=== PATIENT | female | born 1995 | race Caucasian/White ===

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

== ENCOUNTER 2017-07-01 11:49 | Emergency (ER) | payer OTHER ==
[2017-07-01 12:15] VITALS: BMI 26.3
[2017-07-01 12:16] VITALS: RESP 18
--- NOTE | 2017-07-01 13:03 | C.PDOC ---
History Of Present Illness 22 y/o female with history of Asthma presents to ED with complaints of intermittent sob for 2 weeks and intermittent epigastric abdominal pain associated with nausea. Patient states sob does not feel like actual asthma and states she "cannot get full breath in", went to see PMD yesterday and had testing but results "won't happen for few days". Patient was concern for symptoms and came to ED, denies fever, chills, chest pain, leg swelling or diarrhea. LMP 06/13 Time Seen by Provider: 07/01/17 12:16 Chief Complaint (Nursing): Abdominal Pain History Per: Patient History/Exam Limitations: no limitations Onset/Duration Of Symptoms: Days Current Symptoms Are (Timing): Still Present Location Of Pain/Discomfort: Epigastric Past Medical History Reviewed: Historical Data, Nursing Documentation, Vital Signs Vital Signs: Last Vital Signs Temp 98.4 F 07/01/17 12:15 Pulse 61 07/01/17 12:15 Resp 18 07/01/17 12:15 BP 123/81 07/01/17 12:15 Pulse Ox 100 07/01/17 14:31 - Medical History PMH: Asthma Surgical History: No Surg Hx Family History: States: No Known Family Hx - Social History Hx Tobacco Use: No Hx Alcohol Use: No Hx Substance Use: No - Immunization History Hx Tetanus Toxoid Vaccination: No Hx Influenza Vaccination: No Hx Pneumococcal Vaccination: No Review Of Systems Constitutional: Negative for: Fever, Chills Cardiovascular: Negative for: Chest Pain Respiratory: Positive for: Shortness of Breath Gastrointestinal: Positive for: Nausea, Abdominal Pain. Negative for: Vomiting , Diarrhea Physical Exam - Physical Exam Appears: Non-toxic, No Acute Distress, Other (Speaking in full sentences) Skin: Warm, Dry, No Rash Head: Atraumatic, Normacephalic Eye(s): bilateral: PERRL, EOMI Oral Mucosa: Moist Neck: Normal ROM, Supple Cardiovascular: Rhythm Regular Respiratory: Normal Breath Sounds, No Rales, No Rhonchi, No Wheezing Gastrointestinal/Abdominal: Soft, No Tenderness, No Guarding, No Rebound Back: No CVA Tenderness Extremity: Normal ROM, No Pedal Edema, Capillary Refill (<2 seconds) Neurological/Psych: Oriented x3, Normal Speech, Normal Cognition ED Course And Treatment - Laboratory Results Result Diagrams: 07/01/17 13:48 07/01/17 13:48 Urine POC: Negative O2 Sat by Pulse Oximetry: 100 (RA) Pulse Ox Interpretation: Normal - Radiology CXR: Interpreted by Me CXR Interpretation: Yes: No Acute Disease Reevaluation Time: 15:52 Reassessment Condition: Improved Disposition Counseled Patient/Family Regarding: Studies Performed, Diagnosis, Need For Followup, Rx Given - Disposition Referrals: YOUR,PMD [Other] Disposition: HOME/ ROUTINE Disposition Time: 15:52 Condition: IMPROVED Prescriptions: Nitrofurantoin Macrocrystals [Macrobid] 1 cap PO BID #14 cap predniSONE [Prednisone] 60 mg PO DAILY #12 tab Instructions: Urinary Tract Infection, Adult (DC), Asthma, Adult (DC) Forms: [facility] (Finnish), Work Excuse - Clinical Impression Clinical Impression: Acute urinary tract infection, Asthma exacerbation - Scribe Statement The provider has reviewed the documentation as recorded by the Artieiblizzette Escalante All medical record entries made by the Artieiblizzette were at my direction and personally dictated by me. I have reviewed the chart and agree that the record accurately reflects my personal performance of the history, physical exam, medical decision making, and the department course for this patient. I have also personally directed, reviewed, and agree with the discharge instructions and disposition.
[2017-07-01 13:33] LABS: SQUAMOUS EPITHIAL 17 /hpf (0-5); URINE BACTERIA RARE (<OCC); URINE BILIRUBIN NEGATIVE (NEGATIVE); URINE BLOOD NEGATIVE (NEGATIVE); URINE CLARITY Hazy (Clear); URINE COLOR Yellow (YELLOW); URINE GLUCOSE (UA) NORMAL (Normal); URINE LEUKOCYTE ESTERASE 2+ Leu/uL (Negative); URINE PROTEIN 1+ mg/dL (NEGATIVE)
[2017-07-01 13:57] LABS: BASO % 0.6 % (0.0-2.0); EOS # 0.1 K/uL (0.0-0.7); EOS % 1.2 % (0.0-4.0); HEMOGLOBIN 14.2 g/dL (11.0-16.0); LYMPH % 31.2 % (20.0-40.0); MEAN CELL VOLUME 87.3 fL (81.0-99.0); MEAN CORPUSCULAR HEMOGLOBIN 30.1 pg (27.0-31.0); MEAN CORPUSCULAR HGB CONC 34.4 g/dL (33.0-37.0); MEAN PLATELET VOLUME 9.3 fL (7.2-11.7); MONO # 0.4 K/uL (0.0-0.8); MONO % 6.3 % (0.0-10.0); NEUT # 3.9 K/uL (1.8-7.0); NEUT % 60.7 % (50.0-75.0); NRBC % 0.2 % (0.0-2.0); RBC 4.72 Mil/uL (3.80-5.20); RED CELL DISTRIBUTION WIDTH 13.4 % (11.5-14.5); WHITE BLOOD COUNT 6.5 K/uL (4.8-10.8)
[2017-07-01] MEDS ORDERED: cefTRIAXone IV 1 gm in Dextros 50 ML IV STA (14:04)
[2017-07-01 14:22] LABS: ALB/GLOB RATIO 1.2 (1.0-2.1); ALBUMIN 4.5 g/dL (3.5-5.0); ALT/SGPT 34 U/L (9-52); AST/SGOT 41 U/L (14-36); BLOOD UREA NITROGEN 8 mg/dL (7-17); CALCIUM 9.5 mg/dl (8.6-10.4); GFR AFRICAN-AMERICAN > 60; GFR NON-AFRICAN AMERICAN > 60; LIPASE 63 U/L (23-300)
--- NOTE | 2017-07-01 14:28 | US ---
Right upper quadrant abdominal ultrasound History: Right upper quadrant abdominal pain. Comparison: None available. Technique: Real-time sonography was performed through the right upper quadrant of the abdomen. Findings: Liver: 13.4 centimeters in length. Normal echogenicity. Gallbladder: No calculi or sludge. Normal wall thickness of 2.4 millimeters. Negative sonographic Lamar's sign. Common bile duct measures 2.1 millimeters, within normal limits. Limited visualization of the pancreas. Visualized aorta and IVC are preserved. Right kidney: 10.8 x 3.5 x 4.2 centimeters. No calculi or hydronephrosis. Impression: Limited visualization of the pancreas. Otherwise unremarkable sonographic evaluation of the right upper quadrant of the abdomen.
[2017-07-01] MEDS ORDERED: Albuterol-Ipratrop 3 mg / 0.5 (3 ml) UD IH STA (14:32)
[2017-07-01] MEDS ORDERED: cefTRIAXone IV 1 gm in Dextros 50 ML IVPB ONE (14:47)
[2017-07-01] MEDS ORDERED: Albuterol-Ipratrop 3 mg / 0.5 (3 ml) UD ONE (14:54)
--- NOTE | 2017-07-01 15:40 | RAD ---
HISTORY: Shortness of breath. COMPARISON: No prior. TECHNIQUE: Chest PA and lateral FINDINGS: LUNGS: No active pulmonary disease. PLEURA: No significant pleural effusion identified. No pneumothorax apparent. CARDIOVASCULAR: Normal. OSSEOUS STRUCTURES: No significant abnormalities. VISUALIZED UPPER ABDOMEN: Normal. OTHER FINDINGS: None. IMPRESSION: No active disease. Concordant results with the preliminary interpretation rendered by the emergency department physician procedure.
[2017-07-01 15:59] VITALS: BP 119/72; PULSE 84; TEMP 98; O2SAT 98
== END 2017-07-01 16:03 | disposition home or self-care (01) ==
LOC: C.ER 11:49
DX: N39.0 Urinary tract infection, site not specified (principal); J45.901 Unspecified asthma with (acute) exacerbation
CPT/HCPCS: 36415; 71046; 76705; 80053; 81001; 83690; 85025; 85378; 87086; 96365; 96375; 99285; C9113; J0696; J2405

== ENCOUNTER 2018-04-17 20:37 | Emergency (ER) | payer BC, OTHER ==
[2018-04-17 20:38] VITALS: BMI 26.3
[2018-04-17 20:48] VITALS: TEMP 98.3; O2SAT 99
--- NOTE | 2018-04-17 23:07 | C.PDOC ---
History Of Present Illness 22 year old female with PMHx of migraines presents to the ED c/o headache associated with nausea and vomit for the past 2 days. Patient reports her pain is typical for her, headache around her right periorbital/temporal region. Patient states she has a neurologist is [place], she had a MRI done of her brain which was normal. Patient is not on medication for her migraines. Patient states she has been trying Tylenol and Motrin with no relief. Patient presents today because for the past 2 days pain has not improved. Patient denies fever, chills, visual changes, injury, fall, trauma, weakness, numbness. Time Seen by Provider: 04/17/18 21:03 Chief Complaint (Nursing): Headache History Per: Patient History/Exam Limitations: no limitations Onset/Duration Of Symptoms: Days (2) Current Symptoms Are (Timing): Still Present Quality: "Pain" Associated Symptoms: Nausea, Vomiting Recent travel outside of the [place]: No Additional History Per: Patient Past Medical History Reviewed: Historical Data, Nursing Documentation, Vital Signs Vital Signs: Last Vital Signs Temp 98.3 F 04/17/18 20:44 Pulse 70 04/17/18 20:44 Resp 20 04/17/18 20:44 BP 108/71 04/17/18 20:44 Pulse Ox 99 04/17/18 20:44 - Medical History PMH: Asthma, Migraine Surgical History: No Surg Hx Family History: States: Unknown Family Hx - Social History Hx Tobacco Use: No Hx Alcohol Use: No Hx Substance Use: No - Immunization History Hx Tetanus Toxoid Vaccination: No Hx Influenza Vaccination: No Hx Pneumococcal Vaccination: No Review Of Systems Constitutional: Negative for: Fever, Chills Eyes: Negative for: Vision Change Cardiovascular: Negative for: Chest Pain, Palpitations Respiratory: Negative for: Shortness of Breath Gastrointestinal: Positive for: Nausea, Vomiting. Negative for: Abdominal Pain Skin: Negative for: Rash Neurological: Positive for: Headache. Negative for: Weakness, Numbness, Dizziness Physical Exam - Physical Exam Appears: Non-toxic, No Acute Distress Skin: Normal Color, Warm, Dry Head: Atraumatic, Normacephalic Eye(s): bilateral: Normal Inspection, PERRL, EOMI Oral Mucosa: Moist Neck: Normal ROM, No Midline Cervical Tenderness, Supple, Other (no meningeal signs) Chest: Symmetrical Cardiovascular: Rhythm Regular Respiratory: Normal Breath Sounds, No Rales, No Rhonchi, No Wheezing Gastrointestinal/Abdominal: Soft, No Tenderness, No Guarding, No Rebound Extremity: Normal ROM, No Tenderness, No Swelling Neurological/Psych: Oriented x3, Normal Speech, Normal Cognition, Normal Motor, Normal Sensation Gait: Steady ED Course And Treatment O2 Sat by Pulse Oximetry: 99 (ON RA) Pulse Ox Interpretation: Normal Progress Note: Plan: - Imitrex 6 mg SC. - Zofran 4 mg PO. Patient reports she is feeling much better after medication was given. Patient was advised to follow up with her PMD and Neurologist. Disposition - Disposition Disposition: HOME/ ROUTINE Disposition Time: 22:58 Condition: IMPROVED Additional Instructions: Follow up with PMD and Neurologist within 2-3 days. Return to ED if feel worse. 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 - Scribe Statement The provider has reviewed the documentation as recorded by the Scribe Hussain Canales All medical record entries made by the Scribe were at my direction and personally dictated by me. I have reviewed the chart and agree that the record accurately reflects my personal performance of the history, physical exam, medical decision making, and the department course for this patient. I have also personally directed, reviewed, and agree with the discharge instructions and disposition.
[2018-04-17 23:34] VITALS: BP 110/70; PULSE 80; RESP 14
== END 2018-04-17 23:00 | disposition home or self-care (01) ==
LOC: C.ER 20:37
DX: G43.909 Migraine, unspecified, not intractable, without status migrainosus (principal)
CPT/HCPCS: 96372; 99285; J3030